=== PATIENT | female | born 1950 | race Caucasian/White ===

== ENCOUNTER 2019-04-11 12:57 | Emergency (ER) | payer BC, OTHER ==
[2019-04-11 13:24] VITALS: TEMP 98.6; BMI 29.5
[2019-04-11] MEDS ORDERED: ACETAMINOPHEN 1000 MG/100 ML VIAL (NON FORMULARY) IVPB ONE (14:02)
[2019-04-11] MEDS ORDERED: SODIUM CHLORIDE 1,000 ML IV STA (14:02)
[2019-04-11] MEDS ORDERED: ACETAMINOPHEN 325 MG TABLET (FP) PO ONE (14:49)
[2019-04-11] MEDS ORDERED: LIDOCAINE 5% TOPICAL PATCH TP ONE (15:02)
[2019-04-11 15:13] LABS: EOS % 1.5 % (0-4.5); HEMATOCRIT 46.6 % (32.4-45.2); HEMOGLOBIN 15.4 GM/dL (10.7-15.3); LYMPH % 38.5 % (8-40); MCH 28.5 pg (25.7-33.7); MCHC 33.1 g/dl (32.0-36.0); MEAN PLT VOLUME 9.1 fl (7.5-11.1); MONO % 6.9 % (3.8-10.2); NEUT % 52.1 % (42.8-82.8); RBC 5.42 M/mm3 (3.60-5.2); RDW 14.7 % (11.6-15.6); WHITE BLOOD COUNT 5.7 K/mm3 (4.0-10.0)
[2019-04-11 15:20] LABS: PH,URINE 7.5 (5.0-8.0); URINE APPEARANCE CLEAR; URINE BILIRUBIN NEGATIVE (NEGATIVE); URINE COLOR YELLOW; URINE GLUCOSE (UA) NEGATIVE (NEGATIVE); URINE KETONE TRACE (NEGATIVE); URINE LEUK ESTERASE NEGATIVE (NEGATIVE); URINE NITRITE NEGATIVE (NEGATIVE); URINE PROTEIN NEGATIVE (NEGATIVE); URINE UROBILINOGEN 0.2 mg/dL (0.2-1.0)
[2019-04-11] MEDS ORDERED: ACETAMINOPHEN 325 MG TABLET (FP) ONE (15:28)
[2019-04-11] MEDS ORDERED: LIDOCAINE 5% TOPICAL PATCH ONE (15:28)
--- NOTE | 2019-04-11 15:39 | PDOC ---
History of Present Illness - General Chief Complaint: Urinary Problem Stated Complaint: SENT BY DOCTOR Time Seen by Provider: 04/11/19 15:10 History Source: Patient Exam Limitations: No Limitations Past History - Past Medical History Allergies/Adverse Reactions: Allergies Allergy/AdvReac Type Severity Reaction Status Date / Time No Known Allergies Allergy Verified 04/11/19 13:20 COPD: No - Immunization History Immunization Up to Date: Yes - Psycho Social/Smoking Cessation Hx Smoking History: Never smoked Information on smoking cessation initiated: No Hx Alcohol Use: No Drug/Substance Use Hx: No *Physical Exam - Vital Signs Last Vital Signs Temp Pulse Resp BP Pulse Ox 98.6 F 53 L 17 150/61 98 04/11/19 13:21 04/11/19 13:21 04/11/19 13:21 04/11/19 13:21 04/11/19 13:21 - Physical Exam General Appearance: No: Apparent Distress Respiratory/Chest: positive: Lungs Clear, Normal Breath Sounds. negative: Respiratory Distress Cardiovascular: positive: Regular Rhythm, Regular Rate, S1, S2. negative: Murmur Gastrointestinal/Abdominal: positive: Soft. negative: Tender, Distended, Guarding, Rebound Musculoskeletal: positive: CVA Tenderness (L) (very minimal), Other (slight pain with movement of spine ). negative: Muscle Spasm, Vertebral Tenderness Extremity: negative: Pedal Edema, Swelling, Calf Tenderness Neurologic: positive: Alert, Normal Mood/Affect, Motor Strength 5/5 ED Treatment Course - LABORATORY CBC & Chemistry Diagram: 04/11/19 14:45 04/11/19 14:45 - ADDITIONAL ORDERS Additional order review: Laboratory Results 04/11/19 14:45 Urine Color Yellow Urine Appearance Clear Urine pH 7.5 D Ur Specific [place] 1.008 L Urine Protein Negative Urine Glucose (UA) Negative Urine Ketones Trace H Urine Blood Negative Urine Nitrite Negative Urine Bilirubin Negative Urine Urobilinogen 0.2 Ur Leukocyte Esterase Negative 04/11/19 14:45 RBC 5.42 H MCV 86.0 MCHC 33.1 RDW 14.7 MPV 9.1 Neutrophils % 52.1 Lymphocytes % 38.5 Monocytes % 6.9 Eosinophils % 1.5 Basophils % 1.0 - RADIOLOGY Radiology Studies Ordered: Category Date Time Status SPIRAL- RENAL-STONE CT [CT] Stat CT Scan 04/11/19 15:11 Ordered - Medications Given in the ED: ED Medications Discontinued Medications Generic Name Dose Route Start Last Admin Trade Name Princess PRN Reason Stop Dose Admin Acetaminophen 975 mg 04/11/19 14:49 04/11/19 15:26 Tylenol - PO 04/11/19 14:50 975 mg ONCE ONE Administration Lidocaine 1 patch 04/11/19 15:02 04/11/19 15:26 Lidoderm Patch - TP 04/11/19 15:03 1 patch ONCE ONE Administration Medical Decision Making - Medical Decision Making 68 y/o F hx of GERD, L3-L4 herniated disc, HLD presents with L lower back pain radiating down posterior leg (up to knee) from yesterday. Also mentions having chronic lower abdominal pain, for which she is following with GI. Mentions is taking Prilosec and antibiotics; is pending to get outpatient colonoscopy and endoscopy. Denies trauma, heavy lifting, fever, sob, cp, n/v/d, dysuria, hematuria. Used to do physical therapy for her back but stopped therapy a month ago. Consider sciatica, MSK pain, possible kidney stones (though less likely given how comfortable patient appears), unlikely pyelo Plan: Labs, tylenol, lido patch, spiral CT 04/11/19 15:31 Labs reviewed and unremarkable Pending results of spiral CT Signed out to SEAN Crabtree 04/11/19 16:03 Discharge - Discharge Information Problems reviewed: Yes Clinical Impression/Diagnosis: Lower back pain Qualifiers: Chronicity: acute Back pain laterality: left Sciatica presence: without sciatica Qualified Code(s): M54.5 - Low back pain - Follow up/Referral Referrals: Deena Zuñiga MD [Primary Care Provider] - - Patient Discharge Instructions - Post Discharge Activity
[2019-04-11 15:54] LABS: PLATELET COUNT 261 K/MM3 (134-434); PLATELET ESTIMATE ADEQUATE
[2019-04-11 16:00] LABS: BLOOD UREA NITROGEN 11.4 mg/dL (7-18); CREATININE 0.8 mg/dL (0.55-1.3); POTASSIUM 4.3 mmol/L (3.5-5.1)
[2019-04-11 16:01] LABS: ALBUMIN 4.2 g/dl (3.4-5.0); TOT PROT 7.7 g/dl (6.4-8.2)
--- NOTE | 2019-04-11 17:07 | PDOC ---
*Physical Exam - Vital Signs Last Vital Signs Temp Pulse Resp BP Pulse Ox 98.6 F 53 L 17 150/61 98 04/11/19 13:21 04/11/19 13:21 04/11/19 13:21 04/11/19 13:21 04/11/19 13:21 - Physical Exam General Appearance: Yes: Nourished, Appropriately Dressed. No: Apparent Distress Musculoskeletal: positive: Normal Inspection, Muscle Spasm (L paraspinous muscles L4-S1). negative: Other (straight leg raise test/midline tenderness) Integumentary: positive: Normal Color, Dry, Warm Neurologic: positive: Fully Oriented, Alert, Normal Mood/Affect, Normal Response ED Treatment Course - LABORATORY CBC & Chemistry Diagram: 04/11/19 14:45 04/11/19 14:45 - ADDITIONAL ORDERS Additional order review: Laboratory Results 04/11/19 04/11/19 14:45 14:45 Sodium 137 Potassium 4.3 Chloride 104 Carbon Dioxide 27 Anion Gap 6 L BUN 11.4 Creatinine 0.8 Est GFR (CKD-EPI)AfAm 88.42 Est GFR (CKD-EPI)NonAf 76.29 Random Glucose 79 Calcium 9.0 Total Bilirubin 1.0 AST 36 ALT 36 Alkaline Phosphatase 34 L Total Protein 7.7 Albumin 4.2 Urine Color Yellow Urine Appearance Clear Urine pH 7.5 D Ur Specific [place] 1.008 L Urine Protein Negative Urine Glucose (UA) Negative Urine Ketones Trace H Urine Blood Negative Urine Nitrite Negative Urine Bilirubin Negative Urine Urobilinogen 0.2 Ur Leukocyte Esterase Negative 04/11/19 14:45 RBC 5.42 H MCV 86.0 MCHC 33.1 RDW 14.7 MPV 9.1 Neutrophils % 52.1 Lymphocytes % 38.5 Monocytes % 6.9 Eosinophils % 1.5 Basophils % 1.0 - Medications Given in the ED: ED Medications Discontinued Medications Generic Name Dose Route Start Last Admin Trade Name Freq PRN Reason Stop Dose Admin Acetaminophen 1,000 mg 04/11/19 14:02 04/11/19 15:33 Ofirmev Injection - IVPB 04/11/19 14:03 Not Given ONCE ONE Acetaminophen 975 mg 04/11/19 14:49 04/11/19 15:26 Tylenol - PO 04/11/19 14:50 975 mg ONCE ONE Administration Sodium Chloride 1,000 mls @ 1,000 mls/hr 04/11/19 14:02 04/11/19 15:34 Normal Saline - IV 04/11/19 15:01 Not Given ASDIR STA Lidocaine 1 patch 04/11/19 15:02 04/11/19 15:26 Lidoderm Patch - TP 04/11/19 15:03 1 patch ONCE ONE Administration Medical Decision Making - Medical Decision Making 04/11/19 17:41 Signout was received by SEAN Morgan at 1600. Patient was pending CT results to rule out renal stones. No renal stones noted on official CT read. Patient with herniated disks and spinal stenosis of L1 and L2 as seen on the CT today and, was previously documented from her MRI last year. Relatively unchanged. Given her pain likely sciatica. We will treat with supportive therapy and have patient follow-up with her primary care doctor. Return precautions given I discussed the physical exam findings, ancillary test results and final diagnoses with the patient. I answered all of the patient's questions. The patient was satisfied with the care received and felt comfortable with the discharge plan and treatment plan. The Patient agrees to follow up with the primary care physician/specialist within 24-72 hours. Return precautions were given. Discharge - Discharge Information Problems reviewed: Yes Clinical Impression/Diagnosis: Lower back pain Qualifiers: Chronicity: acute Back pain laterality: left Sciatica presence: without sciatica Qualified Code(s): M54.5 - Low back pain Condition: Stable Disposition: HOME - Admission No - Follow up/Referral Referrals: Deena Zuñiga MD [Primary Care Provider] - - Patient Discharge Instructions Patient Printed Discharge Instructions: DI for Sciatica Additional Instructions: You have low back pain due to a muscle spasm. Please take Tylenol thousand milligrams 4 times a day times a day not to exceed 4000 mg a day. You were also prescribed Flexeril. Please take the medication before you go to bed. Do not drive after taking this medication as it may make you sleepy. You may use warm compresses on your back to help with your symptoms. You may also buy lidocaine patches [id number] (usually lidocaine 4%). You may use them daily where the pain is. Please follow-up with your primary care doctor. If your symptoms do not resolve in 3-5 days, follow-up with your orthopedic doctor you. Return to the emergency department if you have worsening back pain, bladder or bowel incontinence, numbness and tingling in her legs, changes in the way you walk, or any new or worsening symptoms. - Post Discharge Activity Work/Back to School Note: Back to Work
[2019-04-11 18:34] VITALS: BP 124/86; PULSE 80
[2019-04-11] MEDS ORDERED: LIDOCAINE PATCH REMOVAL MC SCH (22:00)
== END 2019-04-11 18:34 | disposition home or self-care (01) ==
LOC: JER 12:57
DX: M62.830 Muscle spasm of back (principal); M51.26 Other intervertebral disc displacement, lumbar region; E78.5 Hyperlipidemia, unspecified; K21.9 Gastro-esophageal reflux disease without esophagitis
CPT/HCPCS: 36415; 74176-TC; 80053; 81003; 85025; 87086; 99282-25

== ENCOUNTER 2022-09-04 13:55 | Emergency (ER) | payer BC, OTHER ==
[2022-09-04 14:21] VITALS: TEMP 98.1; BMI 27.1
[2022-09-04 15:30] LABS: BASO % 0.9 % (0-2.0); EOS % 0.8 % (0-4.5); HEMATOCRIT 39.5 % (32.4-45.2); HEMOGLOBIN 13.1 GM/dL (10.7-15.3); LYMPH % 35.7 % (8-40); MCHC 33.2 g/dl (32.0-36.0); MEAN CELL VOLUME 84.3 fl (80-96); MEAN PLT VOLUME 7.2 fl (7.5-11.1); NEUT % 55.6 % (42.8-82.8); PLATELET COUNT 251 10^3/uL (134-434); RBC 4.69 M/mm3 (3.60-5.2); RDW 14.5 % (11.6-15.6); WHITE BLOOD COUNT 5.4 K/mm3 (4.0-10.0)
[2022-09-04 15:35] LABS: INR 1.05 (0.83-1.09); PROTHROMBIN TIME (PATIENT) 12.2 SEC (9.7-13.0)
[2022-09-04 15:47] LABS: POTASSIUM 4.5 mmol/L (3.5-5.1)
[2022-09-04 15:49] LABS: ALBUMIN 3.8 g/dl (3.4-5.0); BLOOD UREA NITROGEN 16.1 mg/dL (7-18); CALCIUM 8.9 mg/dL (8.5-10.1)
[2022-09-04 15:52] LABS: CREATININE 0.8 mg/dL (0.55-1.3)
[2022-09-04 15:54] LABS: BILIRUBIN,TOTAL 0.8 mg/dL (0.2-1); TOT PROT 7.1 g/dl (6.4-8.2)
[2022-09-04 20:17] VITALS: BP 152/98; PULSE 51; RESP 16
== END 2022-09-04 20:34 | disposition home or self-care (01) ==
LOC: JER 13:55
DX: H93.A9 Pulsatile tinnitus, unspecified ear (principal); R42 Dizziness and giddiness; R11.0 Nausea; H93.8X3 Other specified disorders of ear, bilateral
CPT/HCPCS: 36415; 70498-TC; 80053; 80061; 83036; 84443; 85025; 85610; 85730; 86850; 86900; 86901; 99285-25; Q9967